=== PATIENT | female | born 1995 | race Caucasian/White ===

== ENCOUNTER 2020-05-25 04:04 | Emergency (ER) | payer OTHER ==
[~2020-05-25] VITALS: Ht 160 cm; Wt 81.8 kg
[2020-05-25 04:04] VITALS: BP 129/77
--- NOTE | 2020-05-25 04:33 | PHYS DOC ---
General Adult HPI: HPI: ".. I feel like I got a virus.. I been checked at [facility]... and [facility].. Flu test, Strept test and COVID tests.. alll have been negative .. but I still have a scratchy throat.. and congestion, my.. muscle s hurt.. bones hurt.. I feel like I got the flu.. I ve been take tylenol and ibuprofen...' Patient is a 25 year old female dependent who presents with above hx and complaints congestion, rhinorrhea, pharyngitis, malaise, arthralgia, myalgia, and subjective fevers for the past week. Patient has been checked both at [facility] and [facility] for flu, strep, and Covid test have all been negative. Patient's flu shot was completed in May. But has not been completed yet this year. Patient has not completed Covid vaccination as yet either. Patient has remote history of bacterial vaginosis 3 years ago. 2 lifetime sexual partners. No history of current vaginal discharge. Patient denies any travel or specific ill contacts. Her has not had any overseas assignments and has been healthy. He is also not completed his Covid vaccination to the [facility] s ervic. Patient been normally healthy. Patient denies any history immunosuppression. Patient denies any IV drug use. Patient states she gets her flu vaccination every May based on requirements of the year apart. Review of Systems: Review of Systems: Constitutional: Subjective fever Eyes: Denies change in visual acuity HENT: History of nasal congestion and sore throat Respiratory: Denies cough or shortness of breath Cardiovascular: Denies chest pain or edema GI: Denies abdominal pain, nausea, vomiting, bloody stools or diarrhea : Denies dysuria Musculoskeletal: Complains of myalgia and arthralgia Integument: Denies rash Neurologic: Denies headache, focal weakness or sensory changes Endocrine: Denies polyuria or polydipsia Lymphatic: Denies swollen glands Psychiatric: Denies depression or anxiety Family History: Family History: Noncontributory to presentation Current Medications: Current Meds: See nursing for home medicine Allergies: Allergies: No known drug allergies Physical Exam: PE: Constitutional: Well developed, well nourished, no acute distress, non-toxic appearance. [] HENT: Normocephalic, atraumatic, bilateral external ears normal, oropharynx moist, postnasal drainage, mild injection pharynx no oral exudates, nose mild turbinate enlargement and clear rhinorrhea Eyes: PERRLA, EOMI, conjunctiva normal, no discharge. [] Neck: Normal range of motion, no tenderness, supple, no stridor. [] Cardiovascular:Heart rate regular rhythm, no murmur [] Lungs & Thorax: Bilateral breath sounds equal at apex auscultation [] Abdomen: Bowel sounds normal, soft, no tenderness, no masses, no pulsatile masses. [] Skin: Warm, dry, no erythema, no rash. [] Back: No tenderness, no CVA tenderness. [] Extremities: No tenderness, no cyanosis, no clubbing, ROM intact, no edema. [] Neurologic: Alert and oriented X 3, normal motor function, normal sensory function, no focal deficits noted. [] Psychologic: Affect anxious, judgement normal, mood normal. [] EKG: EKG: [] Radiology/Procedures: Radiology/Procedures: [] Heart Score: C/O Chest Pain: N/A Risk Factors: Risk Factors: DM, Current or recent (<one month) smoker, HTN, HLP, family history of CAD, obesity. Risk Scores: Score 0 - 3: 2.5% MACE over next 6 weeks - Discharge Home Score 4 - 6: 20.3% MACE over next 6 weeks - Admit for Clinical Observation Score 7 - 10: 72.7% MACE over next 6 weeks - Early Invasive Strategies Course & Med Decision Making: Course & Med Decision Making Pertinent Labs and Imaging studies reviewed. (See chart for details) Keep follow-up with [facility]. Use nasal saline rinses for nasal congestion and drainage. Use [id number] Tylenol and ibuprofen as needed for discomfort or fever. Benadryl 25 to 50 mg up to 4 times a day also may be helpful for nasal drainage congestion. Try a course of Flonase 2 sprays at night after saline rinses. Return if any concerns. Impression: 1. Viral syndrome 2. Hx. of seasonal allergies 3. History of bacterial vaginosis [] Dragon Disclaimer: Dragon Disclaimer: This electronic medical record was generated, in whole or in part, using a voice recognition dictation system. Departure Departure: Referrals: PCP,UNKNOWN (PCP) Scripts Diphenhydramine Hcl (BENADRYL) 25 Mg Capsule 50 MG PO QIDPRN PRN for allergies, #120 CAP Prov: NAZANIN BAER MD 05/25/20 Ibuprofen (Ibu) 600 Mg Tablet 600 MG PO QIDPRN PRN for fever and discomfort, #120 TAB Prov: NAZANIN BAER MD 05/25/20 Acetaminophen (ACETAMINOPHEN) 500 Mg Tablet 1000 MG PO QIDPRN PRN for fever or discomfort, #120 TAB Prov: NAZANIN BAER MD 05/25/20 0.9 % Sodium Chloride (NORMAL SALINE FLUSH) 2 Ml Disp.syrin 2 ML IJ QID for nasal, #120 DIS.SYR Prov: NAZANIN BAER MD 05/25/20 Fluticasone Propionate (Flonase Allergy Relief) 9.9 Ml [place].susp 2 SPRAYS NS DAILY for allergic rhinitis, #120 ML Prov: NAZANIN BAER MD 05/25/20 NAZANIN BAER MD May 25, 2020 04:33
[2020-05-25] MEDS ORDERED: ACET500T68 PO (04:41)
[2020-05-25] MEDS ORDERED: IBUP-571 PO (04:41)
[2020-05-25] MEDS ORDERED: FLUT9.9S NS (04:41)
[2020-05-25] MEDS ORDERED: 0.92DISP2 IJ (04:41)
[2020-05-25] MEDS ORDERED: DIPH25CA58 PO (04:48)
== END 2020-05-25 05:00 | disposition home or self-care (01) ==
LOC: ER 04:04
DX: B34.9 Viral infection, unspecified (principal)
CPT/HCPCS: 99283